=== PATIENT | male | born 1970 | race Caucasian/White ===

== ENCOUNTER → 2022-08-01 08:01 | Outpatient (REF) | payer BC, SELFPAY ==
[2022-08-01 09:54] LABS: Blood Urea Nitrogen 14 mg/dl (9-20); Calcium 9.3 mg/dl (8.4-10.2); Carbon Dioxide 30 mmol/L (22-30); Chloride 100 mmol/L (98-107); Glomerular Filtration Rate > 60.0; Glucose 114 mg/dl (70-99); Potassium 4.6 mmol/L (3.5-5.1); Sodium 136 mmol/L (135-145)
== END ==
LOC: MRI 3T 08:01
PROVIDERS: ATTENDING PHYSICIAN Orthopaedic Surgery Hand Surgery
DX: M25.511 Pain in right shoulder (principal); Z01.818 Encounter for other preprocedural examination
CPT/HCPCS: 23350; 36415; 73040; 73222; 80048; 93005

== ENCOUNTER → 2024-01-05 15:00 | Outpatient (REF) | payer BC, SELFPAY | LOC: MRI 3T 15:00 | PROVIDERS: ATTENDING PHYSICIAN Orthopaedic Surgery Hand Surgery | DX: M25.511 Pain in right shoulder (principal) | CPT/HCPCS: 23350; 73040; 73222 ==

== ENCOUNTER → 2024-04-17 08:09 | Outpatient (REF) | payer BC, SELFPAY ==
[2024-04-17 09:54] LABS: % Basophils 0.8 % (0-2); % Immature Granulocytes 1.5 % (0-0.5); % Lymphocytes 32.8 % (20.5-51.1); % Monocytes 7.5 % (1.7-9.3); % Neutrophils 53.4 % (42.2-75.2); Absolute Basophils 0.1 10^3/uL (0-0.2); Absolute Eosinophils 0.3 10^3/uL (0-0.7); Absolute Immature Granulocytes 0.1 10^3/uL (0-0.05); Absolute Lymphocytes 2.2 10^3/uL (1.2-3.4); Absolute Monocytes 0.5 10^3/uL (0.1-0.6); Absolute Neutrophils 3.5 10^3/uL (1.4-6.5); Hematocrit 42.5 % (39.0-52.0); Hemoglobin 15.1 g/dL (13.0-18.0); Mean Corp Hgb Conc. 35.5 g/dL (33.0-37.0); Mean Corpuscular Hgb 31.5 pg (27.0-31.0); Mean Corpuscular Volume 88.5 fL (80.0-94.0); Mean Platelet Volume 10.3 fL (7.4-10.4); Nucleated Red Blood Cells % 0 % (-); Platelet Count 240 10^3/uL (130-400); Red Cell Dist. Width 11.8 % (11.5-14.5); White Blood Cell Count 6.6 10^3/uL (4.8-10.8)
[2024-04-17 10:26] LABS: Blood Urea Nitrogen 14 mg/dl (9-20); Carbon Dioxide 29 mmol/L (22-30); Chloride 97 mmol/L (98-107); Glucose 266 mg/dl (70-99); Sodium 134 mmol/L (135-145); eGFR > 60.00
[2024-04-17 15:17] LABS: Glycohemoglobin (HgbA1c) 8.9 % (4.0-5.6)
== END ==
LOC: RCS 08:09
PROVIDERS: ATTENDING PHYSICIAN Orthopaedic Surgery Hand Surgery; FAMILY PHYSICIAN Internal Medicine
DX: Z01.818 Encounter for other preprocedural examination (principal)
CPT/HCPCS: 36415; 80048; 83036; 85025; 93005

== ENCOUNTER 2024-12-13 13:03 | Emergency (ER) | payer BC, SELFPAY ==
[2024-12-13 13:05] VITALS: BP 199/120
[2024-12-13 13:39] VITALS: BP 185/96
--- NOTE | 2024-12-13 13:44 | ED.CVA ---
History of Present Illness
General
Chief Complaint: CVA/TIA Symptoms
Time Seen by Provider: 12/13/24 13:09
Onset of Stroke Symptoms
Onset of symptoms known: Yes
Date of onset of symptoms: 12/13/24
History of Present Illness
History of Present Illness:
54-year-old male presents to the emergency department for evaluation of mental status change and difficulty speaking that occurred earlier today. He states he had a severe headache at a point in time today, which was concurrent with difficulty with
speaking on the telephone to his brother. Brother notes that he seemed confused but did not have difficulty with word finding. Headache was present during this time. No associated vision changes, chest pain, or shortness of breath. All the
symptoms have since resolved and he feels well at this time. No recent medication changes.
Past History
Past History
ED Past Medical History: HTN and NIDDM
ED Past Surgical History: None
Social History
Tobacco: Non-smoker
Personal:
Living: with family
Employment: Employed
Review of Systems
Review of Systems
Allergies reviewed?: Yes
All Other Systems: ROS reviewed and negative except as documented in HPI and ROS
Phy Exam
Physical Exam
Physical Exam:
GEN: Well appearing, NAD, WDWN
HEENT: Oral mucosa moist, no scleral icterus, no nasal congestion
Cardiac: Regular rate and rhythm, no murmur
Lung: No respiratory distress, no tachypnea, lungs clear to auscultation bilaterally
MSK: No gross deformity or injuries
Skin: Good color, no pallor or jaundice, no rashes
Neuro: AO x3; CN II-XII grossly intact. BUE strength 5/5 in all goyal, sensation intact and symmetric. BLE strength 5/5 in all goyal, sensation intact and symmetric
Psych: Calm, cooperative
Course
Orders/Labs/Results
Orders:
Orders
12/13/24 13:43
CT Head W/o Iv Contrast Urgent
Comment:
Reason For Exam: word finding difficulty, now resolved
Cerebrovascular US [US Cerebrovascular] Urgent
Comment:
Reason For Exam: TIA symptoms
12/13/24 13:44
Electrocardiogram (*1) Urgent
Reason for Study: TIA/Stroke
EKG- Treatment ONCE
12/13/24 13:53
Complete Blood Count/With Diff Urgent
Comprehensive Metabolic Panel Urgent
12/13/24 15:58
Aspirin 325 mg PO NOW STA
Clopidogrel Bisulfate [Plavix] 300 mg PO NOW STA
Abnormal Lab Results
12/13/24
13:53
MCH 31.9 H pg
(27.0-31.0)
Abs Immat Gran (auto) 0.1 H 10^3/uL
(0-0.05)
Immature Gran % 0.9 H %
(0-0.5)
Sodium 132 L mmol/L
(135-145)
Glucose 219 H mg/dl
(70-99)
12/13/24 13:53
12/13/24 13:53
Vital Signs
Initial and Last Documented VS:
Initial Vital Signs
Temp Pulse Resp BP Pulse Ox
98.8 F 79 18 199/120 100
12/13/24 13:05 12/13/24 13:05 12/13/24 13:05 12/13/24 13:05 12/13/24 13:05
Last Documented Vital Signs
Temp Pulse Resp BP Pulse Ox
98.8 F 79 18 158/89 96
12/13/24 13:05 12/13/24 13:05 12/13/24 13:05 12/13/24 15:00 12/13/24 15:15
MDM/Problems Addressed
MDM/Problems Addressed:
Patient remained neurologically intact in the emergency department. The case was reviewed with neurology on-call, given the unremarkable carotid Doppler and negative CT head coupled with his presentation, neurology feels it is reasonable to
discharge the patient on dual antiplatelet therapy and lieu of admission for MRI. Patient is comfortable with this plan his blood pressure did improve dramatically with no antihypertensives given in the ED. Will follow-up with his primary care
physician as an outpatient for MRI and will return to the emergency department with any worsening symptoms
Comment
Comment:
EKG independently interpreted by me shows normal sinus rhythm at a rate of [address] changes, patient motion artifact limits interpretation particularly in V1 2 and 3
*Pulse Oximetry
SaO2: 100
Oxygen Mode of Delivery: Room air
Patient hypoxic: no
*Critical Care Note
Total Time (30-74mins, 75-104mins- exclusive of procedures): Not Applicable
ED Attending Note
-
Portions of this chart may have been created with voice recognition software.� Occasional wrong word or��sound alike� substitutions may have occurred due to the inherent limitations of voice recognition software.
Discharge Plan
Departure
Patient Disposition: Home (Routine Discharge)
Date of Disposition: 12/13/24
Time of Disposition: 15:59
Patient with high blood pressure during this ER visit?: Yes
Discharge Problem:
Brain TIA
Instructions: Transient Ischemic Attack (DC)
Prescriptions:
New
aspirin 81 mg tablet
81 mg PO DAILY Qty: 30 0RF
clopidogrel 75 mg tablet
75 mg PO DAILY Qty: 20 0RF
No Action
losartan 50 MG tablet
100 mg PO DAILY
sildenafil [Viagra] 100 MG tablet
100 mg PO DAILYPRN PRN (Reason: ED)
metformin 500 MG tablet extended release 24 hr
500 mg PO DAILY@2099
metformin 500 MG tablet extended release 24 hr
1,500 mg PO DAILY
sitagliptin phosphate [Januvia] 100 MG tablet
100 mg PO DAILY@2099
collagenase clostridium histo. [Santyl] 1 APPLIC ointment
1 1 applic topical DAILY 20 Days Qty: 30 0RF
hydrochlorothiazide 12.5 MG capsule
12.5 mg PO DAILY 30 Days Qty: 30 0RF
amoxicillin-pot clavulanate 1 TABLET tablet
1 tab PO Q12 10 Days Qty: 20 0RF
Glimepiride 2 MG Tablet
2 mg PO BID Qty: 60 0RF
Rx Instructions:
E11.65
Referrals:
Ruth Farnsworth NP [Family Provider, Internal Medicine]
Activity Restrictions/Additional Instructions:
You will be started on dual antiplatelet therapy, aspirin and Plavix. You were given initial loading doses in the emergency department. You will take the Plavix for a total of 21 days including today and then continue aspirin thereafter for
further stroke reduction risk. Please follow-up with your primary care physician for a brain MRI as soon as you are able to get an appointment
Interventions
Interventions:
*General Assessment Last Done: 12/13/24 14:14
*ED- Fall Risk Assessment Last Done: 12/13/24 14:14
ED- Pulmonary Assessment Last Done: 12/13/24 14:14
ED- Neurological Assessment Last Done: 12/13/24 14:14
ED- Cardiac Assessment Last Done: 12/13/24 14:14
ED Swallowing Screen Last Done: 12/13/24 14:14
Discharge Date and Time
Print Language: PORTUGUESE
[2024-12-13 14:07] LABS: Hematocrit 41.1 % (39.0-52.0); Hemoglobin 15.2 g/dL (13.0-18.0); Mean Corp Hgb Conc. 37.0 g/dL (33.0-37.0); Mean Corpuscular Volume 86.2 fL (80.0-94.0); Nucleated Red Blood Cells % 0 % (-); Platelet Count 240 10^3/uL (130-400); Red Cell Dist. Width 11.7 % (11.5-14.5)
[2024-12-13 14:21] LABS: ALT (SGPT) 28 U/L (0-50); AST (SGOT) 22 U/L (17-59); Albumin 4.2 g/dl (3.5-5.0); Alkaline Phosphatase 76 U/L (38-126); Blood Urea Nitrogen 14 mg/dl (9-20); Calcium 9.3 mg/dl (8.4-10.2); Carbon Dioxide 28 mmol/L (22-30); Chloride 99 mmol/L (98-107); Glucose 219 mg/dl (70-99); Potassium 4.0 mmol/L (3.5-5.1); Sodium 132 mmol/L (135-145); Total Protein 6.6 g/dl (6.3-8.2); eGFR > 60.00
[2024-12-13 15:00] VITALS: BP 158/89
[2024-12-13 16:00] VITALS: BP 163/84
[2024-12-13] MEDS: ASPIRIN 325 MG PO (16:07)
[2024-12-13] MEDS: PLAVIX 300 MG PO (16:07)
== END 2024-12-13 16:13 | disposition home or self-care (01) ==
LOC: EMR 13:03
PROVIDERS: Physician Assistant; EMERGENCY PHYSICIAN Emergency Medicine; FAMILY PHYSICIAN Internal Medicine
DX: G45.9 Transient cerebral ischemic attack, unspecified (principal); E11.9 Type 2 diabetes mellitus without complications; I10 Essential (primary) hypertension; Z79.02 Long term (current) use of antithrombotics/antiplatelets; Z79.82 Long term (current) use of aspirin; Z79.84 Long term (current) use of oral hypoglycemic drugs
CPT/HCPCS: 99284; 70450; 80053; 85025; 93005; 93880

== ENCOUNTER → 2025-01-01 14:28 | Outpatient (REF) | payer BC, SELFPAY | LOC: MRI 3T 14:28 | PROVIDERS: ATTENDING PHYSICIAN Internal Medicine | DX: G45.9 Transient cerebral ischemic attack, unspecified (principal); I10 Essential (primary) hypertension; E11.42 Type 2 diabetes mellitus with diabetic polyneuropathy | CPT/HCPCS: 70551 ==